=== PATIENT | male | born 1985 | race Two or more races ===

== ENCOUNTER 2017-09-13 09:21 | Emergency (ER) | payer BC, OTHER ==
[~2017-09-13] VITALS: Ht 170.2 cm; Wt 108.9 kg
[2017-09-13 09:28] VITALS: BP 156/110
== END 2017-09-13 09:46 | disposition home or self-care (01) ==
LOC: ER 09:22
DX: S13.4XXA Sprain of ligaments of cervical spine, initial encounter (principal); F17.200 Nicotine dependence, unspecified, uncomplicated; V49.49XA Driver injured in collision with other motor vehicles in traffic accident, initial encounter; Y93.89 Activity, other specified; Y92.410 Unspecified street and highway as the place of occurrence of the external cause; Y99.0 Civilian activity done for income or pay
CPT/HCPCS: A4606; Z7610

== ENCOUNTER 2017-12-15 08:46 | Emergency (ER) | payer BC ==
[~2017-12-15] VITALS: Ht 167.6 cm; Wt 120.8 kg
[2017-12-15 08:54] VITALS: BP 160/99
== END 2017-12-15 10:22 | disposition home or self-care (01) ==
LOC: ER 08:47
DX: S90.31XA Contusion of right foot, initial encounter (principal); F10.10 Alcohol abuse, uncomplicated; F17.200 Nicotine dependence, unspecified, uncomplicated; Y90.9 Presence of alcohol in blood, level not specified; W20.8XXA Other cause of strike by thrown, projected or falling object, initial encounter; Y93.01 Activity, walking, marching and hiking; Y92.89 Other specified places as the place of occurrence of the external cause; Y99.8 Other external cause status
CPT/HCPCS: 73630; 73650; 99284; A4606; Z7610

== ENCOUNTER 2021-11-19 16:37 | Emergency (ER) | payer SELFPAY ==
[~2021-11-19] VITALS: Ht 167.6 cm; Wt 122.5 kg
--- NOTE | 2021-11-19 16:45 | NUR ---
DR KIM AT BEDSIDE
[2021-11-19] MEDS ORDERED: IBUPROFEN 400 MG TABLET PO ONE (17:00)
[2021-11-19] MEDS ORDERED: IBUPROFEN 400 MG TABLET ONE (17:17)
[2021-11-19] MEDS ORDERED: IBUP-1957 PO (18:02)
[2021-11-19] MEDS ORDERED: ALBU8.5H8 INH (18:02)
--- NOTE | 2021-11-19 18:18 | NUR ---
Patient discharged to home in stable condition. Written and verbal after care instructions given. Patient verbalizes understanding of instruction.
[2021-11-19 18:36] VITALS: BP 124/88
== END 2021-11-19 18:21 | disposition home or self-care (01) ==
LOC: ER 16:40
DX: U07.1 COVID-19 (principal); R09.1 Pleurisy; F17.200 Nicotine dependence, unspecified, uncomplicated
CPT/HCPCS: 71045-TC